=== PATIENT | female | born 1995 | race Caucasian/White ===

== ENCOUNTER 2024-01-03 09:23 | Inpatient (IN) ==
[2024-01-03] MEDS: NIFEdipine 10 MG CAP PO STA ×2 (10:01→10:40)
[2024-01-03 10:17] LABS: Basophils # (auto) 0.03 K/uL (0.00-0.20); Basophils % (auto) 0.3 %; Eosinophils # (auto) 0.06 K/uL (0.00-0.50); Eosinophils % (auto) 0.6 %; Hematocrit (blood only) 40.1 % (37.0-47.0); Hemoglobin 13.5 g/dl (12.0-16.0); Immature Granulocytes # (auto) 0.19 K/uL (0.01-0.20); Immature Granulocytes % (auto) 1.9 %; Lymphocytes # (auto) 2.02 K/uL (1.20-3.40); Lymphocytes % (auto) 19.8 %; Mean Corpuscular Hemoglobin 31.3 pg (25.0-34.0); Mean Corpuscular Hgb Conc 33.7 g/dL (32.0-36.0); Mean Corpuscular Volume 92.8 fL (80.0-100.0); Mean Platelet Volume 11.7 fL (9.4-12.4); Monocytes # (auto) 0.68 K/uL (0.11-0.59); Monocytes % (auto) 6.7 %; Neutrophils # (auto) 7.21 K/uL (1.40-6.50); Neutrophils % (auto) 70.7 %; Platelet Count 153 K/uL (130-400); RDW Coefficient of Variation 13.2 % (11.5-14.5); RDW Standard Deviation 45.1 fL (36.4-46.3); Red Blood Count 4.32 M/uL (4.20-5.40); White Blood Count 10.19 K/ul (4.8-10.8)
[2024-01-03 10:34] LABS: Alanine Aminotransferase 19 U/L (7-52); Albumin Globulin Ratio 1.4 (0.9-2); Albumin Level 3.7 gm/dl (3.4-5.0); Alkaline Phosphatase 116 U/L (34-104); Anion Gap 9 (3-11); Aspartate Aminotransferase 22 U/L (13-39); BUN Creatinine Ratio 12.5 (10-20); Bilirubin,Total 0.3 mg/dl (0.2-1.0); Blood Urea Nitrogen 8 mg/dl (6-23); Calcium 9.6 mg/dl (8.6-10.3); Carbon Dioxide 25 mmol/L (21-32); Chloride 104 mmol/L (98-107); Est GFR (African American) 139.8 ml/min; Est GFR (Non-African American) 120.6 ml/min; Globulin 2.7 gm/dl (2.5-4.0); Glucose 71 mg/dl (70-99(Fasting)); Lactate Dehydrogenase 210 U/L (86-244); Potassium 3.3 mmol/L (3.5-5.1); Sodium 138 mmol/L (136-145); Total Protein 6.4 gm/dl (6.0-8.3); Uric Acid 4.9 mg/dl (2.6-7.2)
[2024-01-03 10:53] LABS: Creatinine Urine Random 130.1 mg/dl; Protein Creatinine Ratio Urine 1.7 (0-0.2); Total Protein Urine Random 223.2 mg/dl (0-11.9)
[2024-01-03] MEDS ORDERED: LACTATED RINGER'S 1,000 ML IV PRN (11:05)
[2024-01-03] MEDS ORDERED: LIDOCAINE 1% LOCAL 20 ML VIAL INFIL PRN (11:05)
[2024-01-03] MEDS ORDERED: OXYTOCIN 30 UNITS/NSS 30 UNITS/500 ML BAG IV PRN (11:05)
[2024-01-03] MEDS: LABETALOL HCL IV 5 MG/ML 20ML IV STA ×6 (11:38→16:13)
[2024-01-03] MEDS: LACTATED RINGER'S 1,000 ML IV SCH (11:55)
[2024-01-03] MEDS: PENICILLIN GK 6 MU in DEXTROSE 5% 250 ML IV STA (11:55)
[2024-01-03] MEDS: MAGNESIUM SULFATE / WTR 40 GM/1,000 ML BAG IV SCH (12:05)
[2024-01-03] MEDS: BETAMETH SOD PHOS/ACETATE IA 6 MG/ML IM STA (12:16)
[2024-01-03] MEDS: OXYTOCIN 30 UNITS/NSS 30 UNITS/500 ML BAG IV PRN (12:21)
[2024-01-03] MEDS: MAG SULFATE 4GM BOLUS FROM BAG IV ONE (12:44)
--- NOTE | 2024-01-03 13:48 | History & Physical Report ---
Date of Service January 03, 2024 Assessment & Plan (1) Pre-eclampsia, severe: Plan: Preeclampsia labs performed, normal blood work. However elevated protein/creatinine ratio. Given patient's symptoms (headache, vision changes), severe-range BPs, and elevated Pr/Cr, diagnosis of preeclampsia with severe features made. Will admit to L&D, EFM/toco, IV. Lance bulb placed for induction 35cc sterile water, starting pitocin concurrently. Magnesium sulfate, seizure precautions, lance catheter, clear liquids diet. Labetalol IV prn elevated BPs. Discussed the above with patient - she is agreeable with plan. Admission and Anticipated Discharge Date Admission Date: January 03, 2024 History of Present Illness Chief Complaint: elevated BP, headache Primary Care Provider: Celeste Wolf MD 28yo @ 35 09/24, presented to OB office for routine visit, reported worsening headache over the past few days, vision floaters. Elevated BPs in the office. Directed to L&D for further eval/workup. On arrival to L&D, reports 6/10 headache, vision floaters. No RUQ pain, no N/V. Swollen ankles. Given elevated BPs on arrival, 2 doses of 10mg PO procardia were used before establishing IV access. Allergies Allergy/AdvReac Type Severity Reaction Status Date / Time No Known Allergies Allergy Verified 01/03/24 08:41 Home Medications Medication Instructions Recorded Confirmed Type prenat.vits,trupti,[id number] 1 tab PO HS 12/24/21 01/03/24 History sertraline 100 mg tablet 100 mg PO HS #90 tabs 02/23/23 01/03/24 Rx Patient History Medical History (Updated 01/03/24 @ 13:45 by Melony Maldonado DO) Varicella vaccine Intrauterine Vaginal bleeding affecting early Threatened miscarriage GERD (gastroesophageal reflux disease) Diet controlled Depression Surgical History History of esophagogastroduodenoscopy (EGD) [place] teeth extracted History of tonsillectomy and adenoidectomy Family History Aunt Breast cancer Grandmother (Maternal) Cervical cancer Diabetes Father Myocardial infarction Uncle Diabetes Denies family history of Ovarian cancer Prostate cancer Colorectal cancer Social History Smoking Status: Never smoker Second Hand Exposure: No; Do You Dip or Chew Tobacco: No; Tobacco Cessation Education Requested by Patient: No Hx Alcohol Use: No (no use in ) Hx Substance Use: No Preferred Language: Belarusian Communication Ability: Effective Visual Impairment: No Limitations Formula Maker Required: No Beliefs That Will Affect Care: None marital status: marital status details: Grant Genao [phone] Current Living Situation: Spouse Current Living Situation Comment: Lives in house with current occupational status: employed current occupation: [employer] Assistant Other Information That Helps Us Care for You: No Feels Safe at Home: Yes Safety Concerns: Feels Safe At This Time, Afraid for Self, Afraid for Child/Children and Afraid for Others in Home Childhood Exposure to Second-Hand Smoke: Yes Dental Care, Regularly: No Physical Activity Frequency: 3-4 Times per Week Seatbelt Use: always Sunscreen Use: Yes Assistive Devices: None Review of Systems All systems reviewed & are unremarkable except as noted in HPI & below Physical Exam Physical Exam: FHT Cat 1 [place] none SVE 1.5/50/-2 Constitutional: WD/WN, vitals as above Respiratory: normal respiratory effort, lungs clear to auscultation no respiratory distress Cardiovascular: Rate/Rhythm: regular rate and regular rhythm Gastrointestinal (Abdomen): Inspection/Auscultation: abdomen normal to inspection Percussion/Palpation: abdomen soft; abdomen nontender Gravid. No s/s chorio or abruption. Skin: no rashes, warm and dry Psychiatric: A+Ox3, euthymic affect Results & Data Vital Signs (Past 12 Hours) Vital Signs Temp Pulse Resp BP Pulse Ox 01/03/24 13:41 93 H 99 01/03/24 13:38 90 159/86 H 01/03/24 13:36 92 H 99 01/03/24 13:34 86 158/86 H 01/03/24 13:31 94 H 99 01/03/24 13:28 91 H 157/85 H 01/03/24 13:26 92 H 99 01/03/24 13:23 100 H 160/83 H 01/03/24 13:21 97 H 99 01/03/24 13:18 90 167/84 H 01/03/24 13:17 100 H 181/82 H 01/03/24 13:16 93 H 100 01/03/24 13:14 100 H 181/82 H 01/03/24 13:11 92 H 100 01/03/24 13:08 88 157/96 H 01/03/24 13:06 93 H 100 01/03/24 13:03 92 H 155/88 H 01/03/24 13:03 96 H 164/99 H 01/03/24 13:01 95 H 100 01/03/24 12:58 92 H 155/88 H 01/03/24 12:56 95 H 100 01/03/24 12:53 96 H 152/85 H 01/03/24 12:51 99 H 100 01/03/24 12:48 96 H 167/87 H 01/03/24 12:47 98 H 175/86 H 01/03/24 12:44 98 H 175/86 H 01/03/24 12:40 98 H 182/84 H 01/03/24 12:34 102 H 169/87 H 01/03/24 12:28 98 H 178/97 H 01/03/24 12:24 98 H 143/94 H 01/03/24 12:18 97 H 157/85 H 01/03/24 12:18 99 H 162/92 H 01/03/24 12:13 97 H 157/85 H 01/03/24 12:08 96 H 151/95 H 01/03/24 12:04 95 H 145/97 H 01/03/24 11:59 96 H 185/92 H 01/03/24 11:54 96 H 175/89 H 01/03/24 11:49 93 H 166/98 H 01/03/24 11:43 99 H 152/91 H 01/03/24 11:38 115 H 174/96 H 01/03/24 11:28 115 H 174/96 H 01/03/24 11:01 112 H 146/86 H 01/03/24 10:24 101 H 161/81 H 01/03/24 10:23 108 H 173/97 H 01/03/24 10:10 36.8 C 86 16 207/102 H 98 01/03/24 09:59 86 207/102 H 07/16/24 09:43 88 188/86 H 01/03/24 09:41 83 209/110 H Coding Level of Care Code None Diagnoses Pre-eclampsia, severe O14.10
[2024-01-03] MEDS: ACETAMINOPHEN 500 MG TAB PO PRN (14:18)
[2024-01-03] MEDS: NIFEdipine EXTENDED REL 30 MG TABCR PO STA (14:58)
[2024-01-03] MEDS: PENICILLIN GK 3 MU in DEXTROSE 5% 100 ML IV PRN (16:03)
[2024-01-03 16:09] LABS: Basophils # (auto) 0.03 K/uL (0.00-0.20); Basophils % (auto) 0.3 %; Eosinophils # (auto) 0.01 K/uL (0.00-0.50); Eosinophils % (auto) 0.1 %; Immature Granulocytes # (auto) 0.25 K/uL (0.01-0.20); Immature Granulocytes % (auto) 2.1 %; Lymphocytes % (auto) 8.4 %; Mean Corpuscular Hemoglobin 31.3 pg (25.0-34.0); Mean Corpuscular Hgb Conc 33.3 g/dL (32.0-36.0); Mean Platelet Volume 11.8 fL (9.4-12.4); Monocytes # (auto) 0.21 K/uL (0.11-0.59); Monocytes % (auto) 1.8 %; Neutrophils # (auto) 10.34 K/uL (1.40-6.50); Neutrophils % (auto) 87.3 %; Platelet Count 164 K/uL (130-400); RDW Coefficient of Variation 13.3 % (11.5-14.5); RDW Standard Deviation 45.8 fL (36.4-46.3); Red Blood Count 4.15 M/uL (4.20-5.40); White Blood Count 11.84 K/ul (4.8-10.8)
[2024-01-03 16:27] LABS: Albumin Globulin Ratio 1.4 (0.9-2); Albumin Level 3.6 gm/dl (3.4-5.0); BUN Creatinine Ratio 10.7 (10-20); Bilirubin,Total 0.2 mg/dl (0.2-1.0); Calcium 8.3 mg/dl (8.6-10.3); Creatinine Clr Calc Pharmacy 150.9 ml/min; Globulin 2.5 gm/dl (2.5-4.0); Magnesium Therapeutic L&D Only 4.2 mg/dL (4.0-8.0); Potassium 3.3 mmol/L (3.5-5.1); Total Protein 6.1 gm/dl (6.0-8.3)
[2024-01-03] MEDS: hydrALAZINE HCL 20 MG/ML VIAL IV STA (16:52)
[2024-01-03] MEDS ORDERED: NALOXONE HCL 0.4 MG/1 ML VIAL/CARP IV PRN (17:30)
[2024-01-03] MEDS ORDERED: NALBUPHINE HCL 5 MG in SYRINGE 0 ML IV PRN (17:30)
[2024-01-03] MEDS ORDERED: NALOXONE HCL 1 MG in SODIUM CHLORIDE 0.9% 1,000 ML IV PRN (17:30)
[2024-01-03] MEDS ORDERED: ROPIVACAINE 0.5% PF 5 MG/ML 20 ML VIAL EPI PRN (17:30)
[2024-01-03] MEDS ORDERED: diphenhydrAMINE 50 MG/ML VIAL IV PRN (17:30)
[2024-01-03] MEDS ORDERED: LIDOCAINE 2% MPF LOCAL 5 ML VIAL EPI PRN (17:30)
[2024-01-03] MEDS ORDERED: SODIUM CHLORIDE 0.9% PF INJ 10 ML VIAL EPI PRN (17:30)
[2024-01-03] MEDS ORDERED: BUPIVACAINE 0.25% PF 30 ML VIAL EPI PRN (17:30)
[2024-01-03] MEDS ORDERED: ePHEDrine sulfate 50 MG/ML AMP IV PRN (17:30)
[2024-01-03] MEDS ORDERED: fentaNYL citrate PF 100 MCG/2 ML VIAL EPI PRN (17:30)
--- NOTE | 2024-01-03 17:30 | Anesthesiology Consultation ---
Date of Service January 03, 2024 Assessment & Plan (1) Encounter for pre-operative examination: Chart Review Chart Review: Patient NOT seen in Pre Admission Testing and Acceptable Risk for Labor Epidural Consults Requested none History Height/Weight Height: 5 ft 2.5 in Weight: 84.368 kg Allergies Allergy/AdvReac Type Severity Reaction Status Date / Time No Known Allergies Allergy Verified 01/03/24 08:41 Medications Home Medications Medication Instructions Recorded Confirmed Last Taken prenat.vits,trupti,edw-ylvf-ootmy 1 tab PO HS 12/24/21 01/03/24 1 Day Ago ~01/02/24 sertraline 100 mg tablet 100 mg PO HS #90 tabs 02/23/23 01/03/24 1 Day Ago ~01/02/24 Active Medications Generic Name Dose Route Start Last Admin Trade Name Freq PRN Reason Stop Dose Admin Acetaminophen 1,000 mg 01/03/24 14:09 01/03/24 14:18 Acetaminophen 500 Mg Tab PO 02/02/24 14:08 1,000 mg Q8H PRN Administration Headache or Pain Penicillin G Potassium 3 mu/ 106 mls @ 100 mls/hr 01/03/24 14:30 01/03/24 16:03 Dextrose IV 01/13/24 14:29 100 mls/hr Q4H PRN Administration GBS(+) Until Delivery Oxytocin 30 units in 500 mls @ 9 mls/hr 01/03/24 11:05 01/03/24 17:00 Pitocin 30 Units/Nss IV 01/05/24 11:04 0.54 units/hr .Q24H PRN 9 mls/hr Labor Induction/Augmentation Titration Protocol 0.54 UNITS/HR Magnesium Sulfate 40 gm in 1,000 mls @ 50 mls/hr 01/03/24 11:15 01/03/24 12:35 Magnesium Sulfate / Wtr IV 02/02/24 11:14 50 mls/hr .Q20H MARTA Infusion Lactated Ringer's 1,000 mls @ 75 mls/hr 01/03/24 11:15 01/03/24 11:55 Lr IV 02/02/24 11:14 75 mls/hr .[id number] MARTA Administration Past Medical History Medical History Varicella vaccine Intrauterine Vaginal bleeding affecting early Threatened miscarriage GERD (gastroesophageal reflux disease) Diet controlled Depression Past Family History Family History Aunt Breast cancer paternal maternal Grandmother (Maternal) Cervical cancer great grandmother Diabetes Father Myocardial infarction Uncle Diabetes Denies family history of Ovarian cancer Prostate cancer Colorectal cancer Past Surgical History Surgical History History of esophagogastroduodenoscopy (EGD) [place] teeth extracted History of tonsillectomy and adenoidectomy Social History Smoking Status: Never smoker Do You Dip or Chew Tobacco: No Hx Alcohol Use: No (no use in ) Alcohol type: wine alcohol intake frequency: holidays/special occasions only Hx Substance Use: No substance use type: does not use Physical Exam Vital Signs Last Vital Signs Temp 98.2 F 01/03/24 15:24 Pulse 94 H 01/03/24 17:26 Resp 16 01/03/24 17:00 BP 153/88 H 01/03/24 17:15 Pulse Ox 98 01/03/24 17:26 Testing Laboratory Results 01/03/24 15:48 01/03/24 15:48 Blood Type A Positive 01/03/24 11:22 Antibody Screen NEGATIVE 01/03/24 11:22
[2024-01-03] MEDS: fentANYL 2 MCG/ML BUPIVacaine 0.125%-NSS 100ML BAG ONE (17:53)
[2024-01-03] MEDS: LIDOCAINE 2%/EPINEPHRINE 1:200,000 20 ML PF ONE (17:54)
[2024-01-03] MEDS: BUPIVACAINE 0.25% PF 30 ML VIAL ONE (17:54)
[2024-01-03] MEDS: fentaNYL citrate PF 100 MCG/2 ML VIAL ONE (17:56)
[2024-01-03] MEDS: ePHEDrine sulfate 50 MG/ML AMP ONE (17:56)
[2024-01-03] MEDS: BUPIVACAINE 0.25% PF 30 ML VIAL EPI STA (17:57)
[2024-01-03] MEDS: LIDOCAINE 2%/EPINEPHRINE 1:200,000 20 ML PF EPI STA (17:57)
[2024-01-03] MEDS: SODIUM CHLORIDE 0.9% PF INJ 10 ML VIAL ONE (17:57)
[2024-01-03] MEDS: SODIUM CHLORIDE 0.9% PF INJ 10 ML VIAL EPI STA (17:57)
[2024-01-03] MEDS: fentaNYL citrate PF 100 MCG/2 ML VIAL EPI STA (17:57)
--- NOTE | 2024-01-03 18:19 | Labor Progress Brief Note ---
Date of Service January 03, 2024 Subjective BP controlled better at this point after epidural. Pt rec'd 2 doses 10mg procardia immediate-release, followed by IV labetalol for elevated BPs - total 200mg labetalol, then gave 30mg XL procardia and hydralazine. FHT Cat 1 [place] irreg Repeat blood work remains normal. Assessment & Plan Admission and Anticipated Discharge Date Admission Date: January 03, 2024 Results & Data Vital Signs (Past 12 Hours) Vital Signs Temp Pulse Pulse Resp BP Pulse Ox O2 Del Method 01/03/24 18:11 92 H 97 01/03/24 18:06 99 H 97 01/03/24 18:01 95 H 97 01/03/24 18:00 93 H 137/80 01/03/24 17:59 36.7 C 95 H 16 98 Room Air 01/03/24 17:56 98 H 98 01/03/24 17:55 99 H 126/81 01/03/24 17:51 96 H 148/92 H 98 01/03/24 17:49 93 H 156/89 H 01/03/24 17:46 104 H 98 01/03/24 17:44 102 H 157/86 H 01/03/24 17:41 107 H 98 01/03/24 17:36 106 H 98 01/03/24 17:31 93 H 98 01/03/24 17:26 94 H 98 01/03/24 17:21 95 H 98 01/03/24 17:16 87 98 01/03/24 17:15 97 H 153/88 H 01/03/24 17:13 96 H 172/99 H 01/03/24 17:11 96 H 98 01/03/24 17:06 96 H 98 01/03/24 17:01 94 H 98 01/03/24 17:00 16 01/03/24 17:00 16 01/03/24 16:56 91 H 98 01/03/24 16:51 91 H 98 01/03/24 16:49 86 172/88 H 01/03/24 16:46 87 98 01/03/24 16:45 85 160/87 H 01/03/24 16:41 85 98 01/03/24 16:38 84 162/86 H 01/03/24 16:36 87 98 01/03/24 16:34 90 142/78 H 01/03/24 16:33 88 158/89 H 01/03/24 16:31 88 97 01/03/24 16:28 88 158/89 H 01/03/24 16:26 89 98 01/03/24 16:21 92 H 99 01/03/24 16:19 87 156/86 H 01/03/24 16:16 87 99 01/03/24 16:13 84 175/97 H 01/03/24 16:11 84 99 01/03/24 16:06 87 99 01/03/24 16:02 98 H 175/97 H 01/03/24 16:01 86 169/97 H 100 01/03/24 15:56 83 99 01/03/24 15:51 88 100 01/03/24 15:46 87 100 01/03/24 15:41 87 99 01/03/24 15:37 83 159/91 H 01/03/24 15:37 89 159/91 H 01/03/24 15:36 89 100 01/03/24 15:31 88 99 01/03/24 15:26 87 99 01/03/24 15:24 36.8 C 01/03/24 15:21 86 99 01/03/24 15:16 88 98 01/03/24 15:11 89 99 01/03/24 15:06 91 H 99 01/03/24 15:05 90 149/92 H 01/03/24 15:01 90 99 01/03/24 15:00 16 01/03/24 15:00 16 01/03/24 14:56 91 H 99 01/03/24 14:52 90 184/102 H 01/03/24 14:51 90 100 01/03/24 14:46 93 H 100 01/03/24 14:41 93 H 99 01/03/24 14:39 96 H 184/102 H 01/03/24 14:36 96 H 99 01/03/24 14:31 88 99 01/03/24 14:26 92 H 99 01/03/24 14:21 89 99 01/03/24 14:16 89 98 01/03/24 14:11 88 99 01/03/24 14:06 91 H 98 01/03/24 14:03 89 157/95 H 01/03/24 14:01 90 99 01/03/24 14:00 16 01/03/24 14:00 16 01/03/24 13:58 89 156/92 H 01/03/24 13:56 88 99 01/03/24 13:55 85 155/88 H 01/03/24 13:53 89 163/97 H 01/03/24 13:51 88 100 01/03/24 13:48 89 166/94 H 01/03/24 13:46 96 H 100 01/03/24 13:43 89 154/86 H 01/03/24 13:41 93 H 99 01/03/24 13:38 90 159/86 H 01/03/24 13:36 92 H 99 01/03/24 13:34 86 158/86 H 01/03/24 13:31 94 H 99 01/03/24 13:30 14 01/03/24 13:28 91 H 157/85 H 01/03/24 13:26 92 H 99 01/03/24 13:23 100 H 160/83 H 01/03/24 13:21 97 H 99 01/03/24 13:18 90 167/84 H 01/03/24 13:17 100 H 181/82 H 01/03/24 13:16 93 H 100 01/03/24 13:15 16 01/03/24 13:14 100 H 181/82 H 01/03/24 13:11 92 H 100 01/03/24 13:08 88 157/96 H 01/03/24 13:06 93 H 100 01/03/24 13:03 92 H 155/88 H 01/03/24 13:03 96 H 164/99 H 01/03/24 13:01 95 H 100 01/03/24 13:00 14 01/03/24 13:00 14 01/03/24 12:58 92 H 155/88 H 01/03/24 12:56 95 H 100 01/03/24 12:53 96 H 152/85 H 01/03/24 12:51 99 H 100 01/03/24 12:48 96 H 167/87 H 01/03/24 12:47 98 H 175/86 H 01/03/24 12:45 14 01/03/24 12:44 98 H 175/86 H 01/03/24 12:40 98 H 182/84 H 01/03/24 12:34 102 H 169/87 H 01/03/24 12:30 16 01/03/24 12:28 98 H 178/97 H 01/03/24 12:24 98 H 143/94 H 01/03/24 12:18 97 H 157/85 H 01/03/24 12:18 99 H 162/92 H 01/03/24 12:15 16 01/03/24 12:13 97 H 157/85 H 01/03/24 12:08 96 H 151/95 H 01/03/24 12:05 16 01/03/24 12:04 95 H 145/97 H 01/03/24 11:59 96 H 185/92 H 01/03/24 11:54 96 H 175/89 H 01/03/24 11:49 93 H 166/98 H 01/03/24 11:43 99 H 152/91 H 01/03/24 11:38 115 H 174/96 H 01/03/24 11:28 115 H 174/96 H 01/03/24 11:01 112 H 146/86 H 01/03/24 10:24 101 H 161/81 H 01/03/24 10:23 108 H 173/97 H 01/03/24 10:10 36.8 C 86 16 207/102 H 98 01/03/24 09:59 86 207/102 H 01/03/24 09:43 88 188/86 H 01/03/24 09:41 83 209/110 H Coding Level of Care Code None
--- NOTE | 2024-01-03 18:30 | Labor Progress Brief Note ---
Date of Service January 03, 2024 Subjective FHT Cat 1 [place] Q 4 SVE 4/70/-2 AROM blood tinged fluid - scant. Mata with blood tinge also. Continue IOL. Assessment & Plan Admission and Anticipated Discharge Date Admission Date: January 03, 2024 Results & Data Vital Signs (Past 12 Hours) Vital Signs Temp Pulse Pulse Resp BP Pulse Ox O2 Del Method 01/03/24 18:26 102 H 96 01/03/24 18:21 95 H 97 01/03/24 18:17 93 H 137/76 01/03/24 18:16 96 H 96 01/03/24 18:11 92 H 97 01/03/24 18:06 99 H 97 01/03/24 18:01 95 H 97 01/03/24 18:00 93 H 137/80 01/03/24 17:59 36.7 C 95 H 16 98 Room Air 01/03/24 17:56 98 H 98 01/03/24 17:55 99 H 126/81 01/03/24 17:51 96 H 148/92 H 98 01/03/24 17:49 93 H 156/89 H 01/03/24 17:46 104 H 98 01/03/24 17:44 102 H 157/86 H 01/03/24 17:41 107 H 98 01/03/24 17:36 106 H 98 01/03/24 17:31 93 H 98 01/03/24 17:26 94 H 98 01/03/24 17:21 95 H 98 01/03/24 17:16 87 98 01/03/24 17:15 97 H 153/88 H 01/03/24 17:13 96 H 172/99 H 01/03/24 17:11 96 H 98 01/03/24 17:06 96 H 98 01/03/24 17:01 94 H 98 01/03/24 17:00 16 01/03/24 17:00 16 01/03/24 16:56 91 H 98 01/03/24 16:51 91 H 98 01/03/24 16:49 86 172/88 H 01/03/24 16:46 87 98 01/03/24 16:45 85 160/87 H 01/03/24 16:41 85 98 01/03/24 16:38 84 162/86 H 01/03/24 16:36 87 98 01/03/24 16:34 90 142/78 H 01/03/24 16:33 88 158/89 H 01/03/24 16:31 88 97 01/03/24 16:28 88 158/89 H 01/03/24 16:26 89 98 01/03/24 16:21 92 H 99 01/03/24 16:19 87 156/86 H 01/03/24 16:16 87 99 01/03/24 16:13 84 175/97 H 01/03/24 16:11 84 99 01/03/24 16:06 87 99 01/03/24 16:02 98 H 175/97 H 01/03/24 16:01 86 169/97 H 100 01/03/24 15:56 83 99 01/03/24 15:51 88 100 01/03/24 15:46 87 100 01/03/24 15:41 87 99 01/03/24 15:37 83 159/91 H 01/03/24 15:37 89 159/91 H 01/03/24 15:36 89 100 01/03/24 15:31 88 99 01/03/24 15:26 87 99 01/03/24 15:24 36.8 C 01/03/24 15:21 86 99 01/03/24 15:16 88 98 01/03/24 15:11 89 99 01/03/24 15:06 91 H 99 01/03/24 15:05 90 149/92 H 01/03/24 15:01 90 99 01/03/24 15:00 16 01/03/24 15:00 16 01/03/24 14:56 91 H 99 01/03/24 14:52 90 184/102 H 01/03/24 14:51 90 100 01/03/24 14:46 93 H 100 01/03/24 14:41 93 H 99 01/03/24 14:39 96 H 184/102 H 01/03/24 14:36 96 H 99 01/03/24 14:31 88 99 01/03/24 14:26 92 H 99 01/03/24 14:21 89 99 01/03/24 14:16 89 98 01/03/24 14:11 88 99 01/03/24 14:06 91 H 98 01/03/24 14:03 89 157/95 H 01/03/24 14:01 90 99 01/03/24 14:00 16 01/03/24 14:00 16 01/03/24 13:58 89 156/92 H 01/03/24 13:56 88 99 01/03/24 13:55 85 155/88 H 01/03/24 13:53 89 163/97 H 01/03/24 13:51 88 100 01/03/24 13:48 89 166/94 H 01/03/24 13:46 96 H 100 01/03/24 13:43 89 154/86 H 01/03/24 13:41 93 H 99 01/03/24 13:38 90 159/86 H 01/03/24 13:36 92 H 99 01/03/24 13:34 86 158/86 H 01/03/24 13:31 94 H 99 01/03/24 13:30 14 01/03/24 13:28 91 H 157/85 H 01/03/24 13:26 92 H 99 01/03/24 13:23 100 H 160/83 H 01/03/24 13:21 97 H 99 01/03/24 13:18 90 167/84 H 01/03/24 13:17 100 H 181/82 H 01/03/24 13:16 93 H 100 01/03/24 13:15 16 01/03/24 13:14 100 H 181/82 H 01/03/24 13:11 92 H 100 01/03/24 13:08 88 157/96 H 01/03/24 13:06 93 H 100 01/03/24 13:03 92 H 155/88 H 01/03/24 13:03 96 H 164/99 H 01/03/24 13:01 95 H 100 01/03/24 13:00 14 01/03/24 13:00 14 01/03/24 12:58 92 H 155/88 H 01/03/24 12:56 95 H 100 01/03/24 12:53 96 H 152/85 H 01/03/24 12:51 99 H 100 01/03/24 12:48 96 H 167/87 H 01/03/24 12:47 98 H 175/86 H 01/03/24 12:45 14 01/03/24 12:44 98 H 175/86 H 01/03/24 12:40 98 H 182/84 H 01/03/24 12:34 102 H 169/87 H 01/03/24 12:30 16 01/03/24 12:28 98 H 178/97 H 01/03/24 12:24 98 H 143/94 H 01/03/24 12:18 97 H 157/85 H 01/03/24 12:18 99 H 162/92 H 01/03/24 12:15 16 01/03/24 12:13 97 H 157/85 H 01/03/24 12:08 96 H 151/95 H 01/03/24 12:05 16 01/03/24 12:04 95 H 145/97 H 01/03/24 11:59 96 H 185/92 H 01/03/24 11:54 96 H 175/89 H 01/03/24 11:49 93 H 166/98 H 01/03/24 11:43 99 H 152/91 H 01/03/24 11:38 115 H 174/96 H 01/03/24 11:28 115 H 174/96 H 01/03/24 11:01 112 H 146/86 H 01/03/24 10:24 101 H 161/81 H 01/03/24 10:23 108 H 173/97 H 01/03/24 10:10 36.8 C 86 16 207/102 H 98 01/03/24 09:59 86 207/102 H 01/03/24 09:43 88 188/86 H 01/03/24 09:41 83 209/110 H Coding Level of Care Code None
[2024-01-03] MEDS: ONDANSETRON INJ 2 MG/ML 2 ML VIAL IV PRN (19:48)
--- NOTE | 2024-01-03 22:14 | Labor Progress Brief Note ---
Date of Service January 03, 2024 Subjective Feeling more pressure. FHT Cat 1 [place] Q 2-4 SVE 8-9/100/+1 Assessment & Plan Admission and Anticipated Discharge Date Admission Date: January 03, 2024 Results & Data Vital Signs (Past 12 Hours) Vital Signs Temp Pulse Pulse Resp BP Pulse Ox O2 Del Method 01/03/24 22:11 221 H 83 L 01/03/24 22:10 122 H 75 L 01/03/24 22:06 97 H 98 01/03/24 22:01 96 H 98 01/03/24 22:00 93 H 16 143/80 H 01/03/24 21:56 94 H 98 01/03/24 21:51 102 H 97 01/03/24 21:46 102 H 98 01/03/24 21:45 100 H 140/79 01/03/24 21:41 101 H 97 01/03/24 21:36 100 H 98 01/03/24 21:31 100 H 97 01/03/24 21:30 96 H 16 135/80 01/03/24 21:26 95 H 98 01/03/24 21:21 94 H 98 01/03/24 21:16 98 01/03/24 21:16 94 H 01/03/24 21:16 93 H 135/77 01/03/24 21:11 95 H 98 01/03/24 21:06 107 H 99 01/03/24 21:02 104 H 94 01/03/24 21:01 104 H 95 01/03/24 21:00 36.6 C 104 H 16 152/73 H 01/03/24 20:56 102 H 95 01/03/24 20:51 101 H 94 01/03/24 20:46 105 H 96 01/03/24 20:45 102 H 127/64 01/03/24 20:41 105 H 95 01/03/24 20:36 106 H 96 01/03/24 20:31 103 H 95 01/03/24 20:30 105 H 16 126/64 94 01/03/24 20:26 104 H 96 01/03/24 20:21 103 H 95 01/03/24 20:16 103 H 126/68 95 01/03/24 20:11 102 H 96 01/03/24 20:06 101 H 96 01/03/24 20:01 97 H 146/66 H 95 01/03/24 20:00 16 01/03/24 20:00 16 01/03/24 19:56 99 H 94 01/03/24 19:55 103 H 94 01/03/24 19:51 94 H 95 01/03/24 19:50 94 H 94 01/03/24 19:46 92 H 133/80 95 01/03/24 19:41 92 H 95 01/03/24 19:36 93 H 94 01/03/24 19:32 93 H 94 01/03/24 19:31 92 H 95 01/03/24 19:30 93 H 132/76 01/03/24 19:26 90 95 01/03/24 19:21 91 H 95 01/03/24 19:16 94 H 95 01/03/24 19:15 92 H 130/77 01/03/24 19:11 94 H 96 01/03/24 19:06 90 96 01/03/24 19:01 91 H 96 01/03/24 19:00 16 01/03/24 19:00 37.0 C 91 H 129/80 01/03/24 18:56 89 96 01/03/24 18:51 92 H 97 01/03/24 18:46 91 H 129/97 96 01/03/24 18:41 95 H 96 01/03/24 18:36 96 H 97 01/03/24 18:31 97 01/03/24 18:31 95 H 01/03/24 18:31 91 H 132/80 01/03/24 18:30 16 01/03/24 18:30 16 01/03/24 18:26 102 H 96 01/03/24 18:21 95 H 97 01/03/24 18:17 93 H 20 137/76 01/03/24 18:16 96 H 96 01/03/24 18:11 92 H 97 01/03/24 18:06 99 H 97 01/03/24 18:01 95 H 97 01/03/24 18:00 93 H 137/80 01/03/24 17:59 36.7 C 95 H 16 98 Room Air 01/03/24 17:56 98 H 98 01/03/24 17:55 99 H 126/81 01/03/24 17:51 96 H 148/92 H 98 01/03/24 17:49 93 H 156/89 H 01/03/24 17:46 104 H 98 01/03/24 17:44 102 H 157/86 H 01/03/24 17:41 107 H 98 01/03/24 17:36 106 H 98 01/03/24 17:31 93 H 98 01/03/24 17:26 94 H 98 01/03/24 17:21 95 H 98 01/03/24 17:16 87 98 01/03/24 17:15 97 H 153/88 H 01/03/24 17:13 96 H 172/99 H 01/03/24 17:11 96 H 98 01/03/24 17:06 96 H 98 01/03/24 17:01 94 H 98 01/03/24 17:00 16 01/03/24 17:00 16 01/03/24 16:56 91 H 98 01/03/24 16:51 91 H 98 01/03/24 16:49 86 172/88 H 01/03/24 16:46 87 98 01/03/24 16:45 85 160/87 H 01/03/24 16:41 85 98 01/03/24 16:38 84 162/86 H 01/03/24 16:36 87 98 01/03/24 16:34 90 142/78 H 01/03/24 16:33 88 158/89 H 01/03/24 16:31 88 97 01/03/24 16:28 88 158/89 H 01/03/24 16:26 89 98 01/03/24 16:21 92 H 99 01/03/24 16:19 87 156/86 H 01/03/24 16:16 87 99 01/03/24 16:13 84 175/97 H 01/03/24 16:11 84 99 01/03/24 16:06 87 99 01/03/24 16:02 98 H 175/97 H 01/03/24 16:01 86 169/97 H 100 01/03/24 15:56 83 99 01/03/24 15:51 88 100 01/03/24 15:46 87 100 01/03/24 15:41 87 99 01/03/24 15:37 83 159/91 H 01/03/24 15:37 89 159/91 H 01/03/24 15:36 89 100 01/03/24 15:31 88 99 01/03/24 15:26 87 99 01/03/24 15:24 36.8 C 01/03/24 15:21 86 99 01/03/24 15:16 88 98 01/03/24 15:11 89 99 01/03/24 15:06 91 H 99 01/03/24 15:05 90 149/92 H 01/03/24 15:01 90 99 01/03/24 15:00 16 01/03/24 15:00 16 01/03/24 14:56 91 H 99 01/03/24 14:52 90 184/102 H 01/03/24 14:51 90 100 01/03/24 14:46 93 H 100 01/03/24 14:41 93 H 99 01/03/24 14:39 96 H 184/102 H 01/03/24 14:36 96 H 99 01/03/24 14:31 88 99 01/03/24 14:26 92 H 99 01/03/24 14:21 89 99 01/03/24 14:16 89 98 01/03/24 14:11 88 99 01/03/24 14:06 91 H 98 01/03/24 14:03 89 157/95 H 01/03/24 14:01 90 99 01/03/24 14:00 16 01/03/24 14:00 16 01/03/24 13:58 89 156/92 H 01/03/24 13:56 88 99 01/03/24 13:55 85 155/88 H 01/03/24 13:53 89 163/97 H 01/03/24 13:51 88 100 01/03/24 13:48 89 166/94 H 01/03/24 13:46 96 H 100 01/03/24 13:43 89 154/86 H 01/03/24 13:41 93 H 99 01/03/24 13:38 90 159/86 H 01/03/24 13:36 92 H 99 01/03/24 13:34 86 158/86 H 01/03/24 13:31 94 H 99 01/03/24 13:30 14 01/03/24 13:28 91 H 157/85 H 01/03/24 13:26 92 H 99 01/03/24 13:23 100 H 160/83 H 01/03/24 13:21 97 H 99 01/03/24 13:18 90 167/84 H 01/03/24 13:17 100 H 181/82 H 01/03/24 13:16 93 H 100 01/03/24 13:15 16 01/03/24 13:14 100 H 181/82 H 01/03/24 13:11 92 H 100 01/03/24 13:08 88 157/96 H 01/03/24 13:06 93 H 100 01/03/24 13:03 92 H 155/88 H 01/03/24 13:03 96 H 164/99 H 01/03/24 13:01 95 H 100 01/03/24 13:00 14 01/03/24 13:00 14 01/03/24 12:58 92 H 155/88 H 01/03/24 12:56 95 H 100 01/03/24 12:53 96 H 152/85 H 01/03/24 12:51 99 H 100 01/03/24 12:48 96 H 167/87 H 01/03/24 12:47 98 H 175/86 H 01/03/24 12:45 14 01/03/24 12:44 98 H 175/86 H 01/03/24 12:40 98 H 182/84 H 01/03/24 12:34 102 H 169/87 H 01/03/24 12:30 16 01/03/24 12:28 98 H 178/97 H 01/03/24 12:24 98 H 143/94 H 01/03/24 12:18 97 H 157/85 H 01/03/24 12:18 99 H 162/92 H 01/03/24 12:15 16 01/03/24 12:13 97 H 157/85 H 01/03/24 12:08 96 H 151/95 H 01/03/24 12:05 16 01/03/24 12:04 95 H 145/97 H 01/03/24 11:59 96 H 185/92 H 01/03/24 11:54 96 H 175/89 H 01/03/24 11:49 93 H 166/98 H 01/03/24 11:43 99 H 152/91 H 01/03/24 11:38 115 H 174/96 H 07/16/24 11:28 115 H 174/96 H 01/03/24 11:01 112 H 146/86 H 01/03/24 10:24 101 H 161/81 H 01/03/24 10:23 108 H 173/97 H Coding Level of Care Code None
[2024-01-03 23:15] LABS: Hematocrit (blood only) 40.8 % (37.0-47.0); Hemoglobin 13.4 g/dl (12.0-16.0); Mean Corpuscular Hemoglobin 31.4 pg (25.0-34.0); Mean Corpuscular Hgb Conc 32.8 g/dL (32.0-36.0); Mean Corpuscular Volume 95.6 fL (80.0-100.0); Mean Platelet Volume 11.7 fL (9.4-12.4); Platelet Count 173 K/uL (130-400); RDW Coefficient of Variation 13.5 % (11.5-14.5); RDW Standard Deviation 47.1 fL (36.4-46.3); Red Blood Count 4.27 M/uL (4.20-5.40); White Blood Count 15.17 K/ul (4.8-10.8)
[2024-01-03 23:29] LABS: Albumin Globulin Ratio 1.3 (0.9-2); Albumin Level 3.6 gm/dl (3.4-5.0); BUN Creatinine Ratio 12.3 (10-20); Bilirubin,Total 0.3 mg/dl (0.2-1.0); Calcium 7.7 mg/dl (8.6-10.3); Est GFR (African American) 139.1 ml/min; Globulin 2.7 gm/dl (2.5-4.0); Magnesium Therapeutic L&D Only 5.6 mg/dL (4.0-8.0); Potassium 4.1 mmol/L (3.5-5.1); Total Protein 6.3 gm/dl (6.0-8.3)
[2024-01-03] MEDS: fentANYL 2 MCG/ML BUPIVacaine 0.125%-NSS 100ML BAG EPI PRN (23:49)
--- NOTE | 2024-01-04 01:06 | Delivery Summary ---
Vaginal Delivery Summary Date of Service January 04, 2024 Vaginal Delivery Summary and 1st Degree LAC Vaginal Delivery Summary: Pre-delivery diagnoses: 28yo @ 35 5/7, preeclampsia with severe features Post-delivery diagnoses: same Procedure: spontaneous vaginal delivery Surgeon: Melony Maldonado DO Complications: none Findings: Viable male . Apgars: 8/9. Weight pending, please see nursery records. Estimated QBL: 399ml Description of delivery: The patient was admitted for elevated severe-range BPs, elevated protein/creatinine ratio, headache. BPs were treated with procardia, labetalol, and nifedipine. She was treated with magnesium sulfate. Mata bulb, pitocin, and AROM were used for induction. She progressed to complete with epidural anesthesia. She then began to push. She spontaneously vaginally delivered a viable from the cephalic presentation. The head delivered in CLAUDINE position. Nuchal noted - too tight to reduce, therefore delivered through. The anterior shoulder delivered, followed by the posterior shoulder, followed by the body. The baby was placed on mother's abdomen and a spontaneous cry was heard. Delayed cord clamping was employed, and the cord was doubly clamped and cut. A segment was retained for cord gases - not sent . Cord blood was obtained. The placenta was delivered spontaneously intact with a 3-vessel cord. The uterus and vagina were swept of clots and debris. IV pitocin was given. The uterus became firm. The cervix, vagina, and perineum were inspected and a first degree perineal and right vaginal laceration were noted and repaired with 3-0 Vicryl. Excellent hemostasis was observed. The mother and baby are recovering in stable and good condition in the room. Sponge, needle and instrument counts were correct x 2. Melony Maldonado [facility] Delivery Charge Vaginal Delivery Codes: 96266 global code for the antepartum, delivery, and post- Delivery Type Details: and 1st Degree LAC
[2024-01-04] MEDS ORDERED: ACETAMINOPHEN 325 MG TAB PO PRN (01:20)
[2024-01-04] MEDS ORDERED: HYDROCORTISONE ACETATE 25 MG SUPP PR PRN (01:20)
[2024-01-04] MEDS ORDERED: OXYTOCIN 30 UNITS/NSS 30 UNITS/500 ML BAG IV PRN (01:20)
[2024-01-04] MEDS ORDERED: oxyCODONE/ACETAMINOPHEN 5mg/325mg TAB PO PRN (01:20)
[2024-01-04 04:35] LABS: Hematocrit (blood only) 33.7 % (37.0-47.0); Hemoglobin 10.9 g/dl (12.0-16.0); Mean Corpuscular Hemoglobin 31.3 pg (25.0-34.0); Mean Corpuscular Hgb Conc 32.3 g/dL (32.0-36.0); Mean Corpuscular Volume 96.8 fL (80.0-100.0); Mean Platelet Volume 11.8 fL (9.4-12.4); Platelet Count 186 K/uL (130-400); RDW Coefficient of Variation 13.6 % (11.5-14.5); RDW Standard Deviation 48.6 fL (36.4-46.3); Red Blood Count 3.48 M/uL (4.20-5.40); White Blood Count 23.09 K/ul (4.8-10.8)
[2024-01-04 04:48] LABS: Albumin Globulin Ratio 1.6 (0.9-2); Albumin Level 3.3 gm/dl (3.4-5.0); BUN Creatinine Ratio 10.4 (10-20); Bilirubin,Total 0.3 mg/dl (0.2-1.0); Calcium 7.1 mg/dl (8.6-10.3); Creatinine Clr Calc Pharmacy 126.1 ml/min; Est GFR (African American) 137.7 ml/min; Est GFR (Non-African American) 118.8 ml/min; Globulin 2.1 gm/dl (2.5-4.0); Magnesium Therapeutic L&D Only 5.7 mg/dL (4.0-8.0); Potassium 3.3 mmol/L (3.5-5.1); Total Protein 5.4 gm/dl (6.0-8.3)
[2024-01-04] MEDS: BENZOCAINE 20% SPRY 85 APPLN/85 GM CAN EXT PRN (06:13)
[2024-01-04] MEDS: IBUPROFEN 600 MG TAB PO PRN (06:31)
--- NOTE | 2024-01-04 07:41 | Anesthesia Procedure Note ---
Date of Service January 04, 2024 Anesthesia Post Epidural Note Vital Signs Vital Signs: Temp Pulse Resp BP Pulse Ox O2 Del Method 36.8 C 95 H 16 138/75 100 Room Air 01/04/24 07:00 01/04/24 07:36 01/04/24 07:00 01/04/24 07:12 01/04/24 07:36 01/04/24 07:00 Pain Intensity Head: Pain Intensity: 2 Notes Mental Status: alert / awake / arousable and participated in evaluation Nausea / Vomiting: adequately controlled Pain: adequately controlled Airway Patency, RR, SpO2: stable & adequate BP & HR: stable & adequate Hydration State: stable & adequate Neuraxial Anesthesia: was administered and sensory block is resolving Anesthetic Complications: no major complications apparent Epidural: Removed without complications and With tip intact
[2024-01-04] MEDS: DIPHTHER/TETAN/PERTUS Vaccine (Tdap, Adol/Adult) 0.5mL IM ONE (09:02)
[2024-01-04] MEDS ORDERED: Nursing to Pharmacy Communication SCH ×2 (09:30→16:15)
[2024-01-04] MEDS: DOCUSATE SODIUM 100 MG CAP PO SCH (09:50)
[2024-01-04] MEDS: PRENATAL VITAMIN 1 TAB PO SCH (09:50)
[2024-01-04] MEDS: SERTRALINE HCL 100 MG TABLET PO SCH (21:24)
[2024-01-04] MEDS: LABETALOL HCL 200 MG TAB PO SCH (21:38)
[2024-01-05] MEDS: LABETALOL HCL IV 5 MG/ML 20ML IV STA (01:37)
--- NOTE | 2024-01-05 06:24 | Obstetrical Progress Note ---
Date of Service <Nadir Londono DO - Last Filed: 01/05/24 07:27> January 05, 2024 Assessment & Plan <Nadir Londono DO - Last Filed: 01/05/24 07:27> (1) Encounter for assessment: Patient is PPD 1 s/p and doing well - magnesium sulfate as needed for seizures and labetalol to control BPs - Eating well, voiding well, ambulating well - vitals reviewed and within normal limits - pain well controlled with analgesics - OOB, ambulation, diet progression as tolerated - Blood type: A+, GBS neg, rubella immune - Plan to discharge in 1-2 days depending on BPs - After discharge, 6 week follow up with OB visit type: exam and care immediately after delivery Qualified Code(s): Z39.0 - Encounter for care and examination of mother immediately after delivery <Juan Rodriguez MD - Last Filed: 01/05/24 07:36> (1) Encounter for assessment: Subjective <Nadir Londono DO - Last Filed: 01/05/24 07:27> 28 yo post- day 1 s/p , complicated by pre-eclampsia w/ severe features Ambulation: ambulating normally Voiding: no voiding problems Passing Gas:: Yes Diet Tolerance:: regular diet Lochia:: Small Feeding Type:: breast feeding Current Pain Level: 5/10 Resting comfortably this AM in NAD. Denies JONES, CP, SOB, N/V/D, LE pain/swelling. Physical Exam <Nadir Londono DO - Last Filed: 01/05/24 07:27> General: patient resting comfortably, NAD, non-toxic in appearance, answers questions appropriately. Skin: warm, dry, intact HEENT: NC/AT, anicteric sclera, conjunctiva without injection, moist mucus membranes. Heart: +S1/S2, regular, no m/r/g Lungs: equal air entry bilaterally, no rales/rhonchi/wheezes Abd: +BS, soft, NT/ND, uterine fundus firm at umbilicus Ext: warm, no clubbing/cyanosis or edema, Branden's neg. Neuro: nonfocal, speech intact, no facial droop, moving all extremities. Results & Data <Nadir Londono DO - Last Filed: 01/05/24 07:27> Vital Signs (Past 12 Hours) Vital Signs Temp Pulse Pulse Resp BP BP Pulse Ox 01/05/24 01:45 36.5 C 80 16 128/78 98 01/05/24 01:37 157/82 H 01/05/24 00:30 18 01/05/24 00:28 80 129/66 01/05/24 00:24 84 99 01/05/24 00:19 82 99 01/05/24 00:14 82 99 01/05/24 00:09 83 99 01/05/24 00:04 86 100 01/04/24 23:59 86 100 01/04/24 23:54 87 99 01/04/24 23:49 88 100 01/04/24 23:44 94 H 100 01/04/24 23:39 91 H 100 01/04/24 23:34 88 99 01/04/24 23:30 16 01/04/24 23:30 37.0 C 16 01/04/24 23:29 95 H 100 01/04/24 23:24 85 126/68 100 01/04/24 23:19 94 H 100 01/04/24 23:14 83 99 01/04/24 23:09 85 99 01/04/24 23:04 87 99 01/04/24 22:59 92 H 99 01/04/24 22:54 86 99 01/04/24 22:49 100 H 99 01/04/24 22:44 101 H 100 01/04/24 22:42 92 H 149/79 H 01/04/24 22:39 94 H 99 01/04/24 22:34 91 H 99 01/04/24 22:29 96 H 97 01/04/24 22:24 96 H 100 01/04/24 22:19 93 H 99 01/04/24 22:14 98 H 100 01/04/24 22:09 97 H 100 01/04/24 22:05 18 01/04/24 22:04 98 H 100 01/04/24 22:00 84 157/82 H 01/04/24 21:59 84 100 01/04/24 21:54 87 100 01/04/24 21:49 84 100 01/04/24 21:44 87 100 01/04/24 21:39 85 100 01/04/24 21:34 87 100 01/04/24 21:29 85 100 01/04/24 21:24 100 01/04/24 21:24 94 H 01/04/24 21:24 85 185/86 H 01/04/24 21:19 81 100 01/04/24 21:14 86 100 01/04/24 21:09 87 100 01/04/24 21:05 18 01/04/24 21:05 99 H 169/73 H 01/04/24 21:04 106 H 100 01/04/24 20:59 88 191/87 H 100 01/04/24 20:54 101 H 100 01/04/24 20:49 89 98 01/04/24 20:44 90 97 01/04/24 20:39 93 H 98 01/04/24 20:34 96 H 97 01/04/24 20:30 16 01/04/24 20:29 94 H 97 01/04/24 20:24 95 H 97 01/04/24 20:19 95 H 97 01/04/24 20:14 94 H 97 01/04/24 20:09 94 H 97 01/04/24 20:04 93 H 98 01/04/24 20:00 89 146/70 H 01/04/24 19:59 89 98 01/04/24 19:54 87 99 01/04/24 19:49 90 100 01/04/24 19:44 86 100 01/04/24 19:39 88 100 01/04/24 19:34 91 H 100 01/04/24 19:29 90 100 01/04/24 19:24 91 H 100 01/04/24 19:19 97 H 100 01/04/24 19:15 18 01/04/24 19:15 36.9 C 18 01/04/24 19:15 01/04/24 19:14 92 H 100 01/04/24 19:09 112 H 100 01/04/24 19:02 95 H 100 01/04/24 18:59 93 H 139/83 01/04/24 18:57 102 H 99 01/04/24 18:52 92 H 99 01/04/24 18:47 96 H 98 01/04/24 18:42 96 H 99 01/04/24 18:37 99 H 99 01/04/24 18:32 101 H 99 01/04/24 18:27 105 H 99 O2 Del Method 01/05/24 01:45 Room Air 01/05/24 01:37 01/05/24 00:30 01/05/24 00:28 01/05/24 00:24 01/05/24 00:19 01/05/24 00:14 01/05/24 00:09 01/05/24 00:04 01/04/24 23:59 01/04/24 23:54 01/04/24 23:49 01/04/24 23:44 01/04/24 23:39 01/04/24 23:34 01/04/24 23:30 01/04/24 23:30 01/04/24 23:29 01/04/24 23:24 01/04/24 23:19 01/04/24 23:14 01/04/24 23:09 01/04/24 23:04 01/04/24 22:59 01/04/24 22:54 01/04/24 22:49 01/04/24 22:44 01/04/24 22:42 01/04/24 22:39 01/04/24 22:34 01/04/24 22:29 01/04/24 22:24 01/04/24 22:19 01/04/24 22:14 01/04/24 22:09 01/04/24 22:05 01/04/24 22:04 01/04/24 22:00 01/04/24 21:59 01/04/24 21:54 01/04/24 21:49 01/04/24 21:44 01/04/24 21:39 01/04/24 21:34 01/04/24 21:29 01/04/24 21:24 01/04/24 21:24 01/04/24 21:24 01/04/24 21:19 01/04/24 21:14 01/04/24 21:09 01/04/24 21:05 01/04/24 21:05 01/04/24 21:04 01/04/24 20:59 01/04/24 20:54 01/04/24 20:49 01/04/24 20:44 01/04/24 20:39 01/04/24 20:34 01/04/24 20:30 01/04/24 20:29 01/04/24 20:24 01/04/24 20:19 01/04/24 20:14 01/04/24 20:09 01/04/24 20:04 01/04/24 20:00 01/04/24 19:59 01/04/24 19:54 01/04/24 19:49 01/04/24 19:44 01/04/24 19:39 01/04/24 19:34 01/04/24 19:29 01/04/24 19:24 01/04/24 19:19 01/04/24 19:15 01/04/24 19:15 01/04/24 19:15 Room Air 01/04/24 19:14 01/04/24 19:09 01/04/24 19:02 01/04/24 18:59 01/04/24 18:57 01/04/24 18:52 01/04/24 18:47 01/04/24 18:42 01/04/24 18:37 01/04/24 18:32 01/04/24 18:27 Supervising Physician <Juan Rodriguez MD - Last Filed: 01/05/24 07:36> Co-Signing Physician Notes Patient seen with resident and agree with the above findings and plan. Pressure stable this morning. Started labetalol 200 mg twice daily yesterday. Will continue to monitor. Denying any other preeclampsia symptoms Resident Activity Tracking <Nadir Londono DO - Last Filed: 01/05/24 07:27> Resident Involvement: Resident Care Provided Care Provided: OB Delivery
[2024-01-05 06:34] LABS: Hematocrit (blood only) 26.9 % (37.0-47.0); Hemoglobin 8.6 g/dl (12.0-16.0)
[2024-01-05] MEDS ORDERED: bisacodyL 5 MG TABEC PO SCH (20:00)
[2024-01-05] MEDS: LABETALOL HCL 200 MG TAB PO SCH (20:58)
[2024-01-06] MEDS ORDERED: bisacodyL 10 MG SUPP PR PRN (01:20)
== END 2024-01-06 15:30 | disposition home or self-care (01) | DRG 807 ==
LOC: OPB 09:23 → 4S1 09:23 → 4E2 01-05 01:27